=== PATIENT | female | born 1995 | race Caucasian/White ===

== ENCOUNTER 2023-04-21 10:47 | Emergency (ER) | payer SELFPAY ==
[~2023-04-21 10:47] MED LIST: Iopamidol-370 76% 500 ML MDV (1 ML CHARGE) ONE
[2023-04-21 11:09] LABS: #Eosinphils 0.1 thou/uL (0.0-0.7); #Monocytes 0.4 thou/uL (0.11-0.59); #Neutrophils 4.5 thou/uL (1.40-6.50); %Basophils 0.2 % (0.0-1.0); %Eosinophils 0.9 % (0.0-10.0); %Lymphocytes 8.5 % (21.0-51.0); %Monocytes 7.6 % (0.0-10.0); %Neutrophils 82.3 % (42.0-75.0); Hemoglobin 13.2 g/dL (12.0-16.0); Mean Corpuscular HGB CONC 32.9 g/dL (32.0-36.0); Mean Corpuscular Hemoglobin 30.6 pg (27.0-31.0); Mean Platelet Volume 9.8 fL (7.4-10.4); Platelet Count 218 10x3/uL (130-400); RBC Distribution Width 13.5 % (11.5-14.5); Red Blood Cell (RBC) Count 4.31 mill/uL (4.20-5.40); White Blood Cell (WBC) Count 5.5 10x3/uL (4.8-10.8)
[2023-04-21 11:37] LABS: ALT (SGPT) 16 U/L (8-55); AST (SGOT) 15 U/L (5-34); Albumin 4.5 g/dL (3.5-5.0); Alkaline Phosphatase 77 U/L (40-110); Anion Gap 13 mmol/L (10-20); BUN (Urea Nitrogen) 14 mg/dL (7.0-18.7); Bilirubin, Total 0.3 mg/dL (0.2-1.2); Calc. Creatinine Clearance 0 mL/min (70-130); Calcium 9.2 mg/dL (7.8-10.44); Carbon Dioxide 23 mmol/L (22-29); Chloride 107 mmol/L (98-107); Estimated GFR 104; Globulin 2.7 g/dL (2.4-3.5); Glucose 97 mg/dL (70-105); Potassium 4.2 mmol/L (3.5-5.1); Protein, Total 7.2 g/dL (6.0-8.3); Sodium 139 mmol/L (136-145)
[2023-04-21] MEDS ORDERED: diphenhydrAMINE 50 MG/ML VIAL ONE (11:39)
[2023-04-21] MEDS ORDERED: Metoclopramide HCl 10 MG/2 ML VIAL ONE (11:39)
[2023-04-21] MEDS ORDERED: Acetaminophen 500 MG TAB ONE (12:40)
[2023-04-21] MEDS ORDERED: Morphine 4 MG/ML VIAL ONE (13:09)
[2023-04-21] MEDS ORDERED: Ondansetron PF 4 MG/2 ML Vial ONE (13:09)
[2023-04-21 13:20] LABS: BHCG - Serum Negative (NEGATIVE); Pregs Control Background? CLEAR/WHITE (CLR/WHITE); Pregs Control Bar Appear? YES (CONTROL BAR)
== END 2023-04-21 14:53 | disposition home or self-care (01) ==
LOC: ERS 10:47
DX: R07.9 Chest pain, unspecified (principal); E86.0 Dehydration; R00.0 Tachycardia, unspecified
CPT/HCPCS: 71045; 71275; 80053; 83690; 84443; 84484; 84703; 85025; 85379; 93005; 94760; 96361; 96365; 96375; J1200; J1956; J2270; J2405; J2765; Q9967

== ENCOUNTER 2023-04-23 20:41 | Emergency (ER) | payer SELFPAY | END 2023-04-23 21:56 | disposition home or self-care (01) | LOC: ERS 20:41 | DX: Z13.9 Encounter for screening, unspecified (principal); Z20.822 Contact with and (suspected) exposure to COVID-19 | CPT/HCPCS: 87635; 99281 ==

== ENCOUNTER 2024-06-30 10:16 | Emergency (ER) | payer SELFPAY ==
[2024-06-30 11:36] LABS: SARS-CoV-2 E Target Negative; SARS-CoV-2 N2 Target Negative; SARS-CoV-2 NAA Rapid Test Not Detected (NotDetected); SARS-CoV-2 RdRP gene Negative
[2024-06-30] MEDS ORDERED: Ondansetron ODT 4 MG TAB ONE (11:42)
== END 2024-06-30 11:49 | disposition home or self-care (01) ==
LOC: ERS 10:16
DX: B34.9 Viral infection, unspecified (principal)
CPT/HCPCS: 71046; Q0162; U0002